=== PATIENT | female | born 1970 | race African-American/Black ===

== ENCOUNTER 2016-09-08 17:47 | Emergency (ER) | payer MEDICAID, OTHER ==
[~2016-09-08] VITALS: Ht 162.6 cm; Wt 90.0 kg
[2016-09-08] MEDS: ONDANSETRON HCL 4MG/2ML VIAL IV PRN ×2 (20:15→20:32)
[2016-09-08] MEDS: MORPHINE SULFATE 4 MG/ML CPJ (NOT FOR IM USE) IV PRN ×2 (20:15→20:33)
[2016-09-08] MEDS ORDERED: MORPHINE SULFATE 2 MG/ML CPJ (NOT FOR IM USE) IV ONE (20:15)
[2016-09-08 20:32] LABS: CHLORIDE 101 mEq/L (98-107)
[2016-09-08 20:34] LABS: CARBON DIOXIDE 20 mEq/L (21-32)
[2016-09-08 20:36] LABS: PROTHROMBIN TIME 10.7 sec
[2016-09-08 20:41] LABS: HCG SCREEN NEGATIVE
[2016-09-08 20:47] LABS: BASOPHILS % 0.4 % (0.0-2.0); EOSINOPHILS % 0.2 % (0.0-5.0); HEMATOCRIT. 38.1 % (36.0-48.0); HEMOGLOBIN. 12.6 g/dL (12.0-16.0); LYMPHOCYTES % 14.6 % (20.0-50.0); MEAN CORPUSCULAR HEMOGLOBIN 26.8 pg (28.0-32.0); MEAN CORPUSCULAR VOLUME 81.2 fL (81.0-99.0); MEAN PLATELET VOLUME 7.2 fl (7.4-10.4); MONOCYTES % 6.3 % (2.0-8.0); NEUTROPHILS % 78.5 % (40.0-76.0); PLATELET 320 x1000/uL (130-400); RED CELL DISTRIBUTION WIDTH 13.9 % (11.6-14.6)
[2016-09-08] MEDS ORDERED: MORPHINE SULFATE 4 MG/ML CPJ (NOT FOR IM USE) IV ONE (22:15)
[2016-09-08 22:18] VITALS: BP 149/85
== END 2016-09-08 22:30 | disposition short-term general hospital (02) ==
LOC: ER 18:37
DX: I60.2 Nontraumatic subarachnoid hemorrhage from anterior communicating artery (principal); I10 Essential (primary) hypertension; Z90.710 Acquired absence of both cervix and uterus
CPT/HCPCS: 36415; 70450; 70496; 80048; 84703; 85025; 85610; 96374; 96375; 96376; 99291; J2270; J2405; Z7610

== ENCOUNTER 2017-06-29 08:56 | Emergency (ER) | payer MEDICAID ==
[~2017-06-29] VITALS: Ht 157.5 cm; Wt 79.0 kg
[2017-06-29] MEDS ORDERED: IBUPROFEN 600MG TABLET PO ONE (11:00)
[2017-06-29 12:57] VITALS: BP 128/87
== END 2017-06-29 13:10 | disposition home or self-care (01) ==
LOC: ER 09:27
DX: S93.402A Sprain of unspecified ligament of left ankle, initial encounter (principal); X58.XXXA Exposure to other specified factors, initial encounter; Y93.89 Activity, other specified; Y92.89 Other specified places as the place of occurrence of the external cause; I10 Essential (primary) hypertension; Z90.710 Acquired absence of both cervix and uterus; Z98.890 Other specified postprocedural states; Z86.79 Personal history of other diseases of the circulatory system
CPT/HCPCS: 73600; 99284

== ENCOUNTER 2017-09-21 13:50 | Emergency (ER) | payer MEDICAID ==
[~2017-09-21] VITALS: Ht 154.9 cm; Wt 83.4 kg
[2017-09-21] MEDS ORDERED: IBUPROFEN 600MG TABLET PO ONE (16:15)
[2017-09-21 16:35] LABS: BASOPHILS % 1.4 % (0.0-2.0); EOSINOPHILS % 3.5 % (0.0-5.0); HEMATOCRIT. 38.4 % (36.0-48.0); HEMOGLOBIN. 12.7 g/dL (12.0-16.0); LYMPHOCYTES % 39.8 % (20.0-50.0); MEAN CORPUSCULAR HEMOGLOBIN 26.7 pg (28.0-32.0); MEAN CORPUSCULAR VOLUME 80.6 fL (81.0-99.0); MEAN PLATELET VOLUME 7.2 fl (7.4-10.4); MONOCYTES % 10.1 % (2.0-8.0); NEUTROPHILS % 45.2 % (40.0-76.0); PLATELET 313 x1000/uL (130-400); RED BLOOD CELL COUNT 4.76 mill/uL (4.2-5.4); RED CELL DISTRIBUTION WIDTH 13.8 % (11.6-14.6)
[2017-09-21 16:38] LABS: CHLORIDE 104 mEq/L (98-107)
[2017-09-21 16:54] LABS: HCG SCREEN NEGATIVE
[2017-09-21 17:49] VITALS: BP 110/60
== END 2017-09-21 17:51 | disposition home or self-care (01) ==
LOC: ER 14:42
DX: H66.91 Otitis media, unspecified, right ear (principal); R59.9 Enlarged lymph nodes, unspecified; I10 Essential (primary) hypertension; Z90.710 Acquired absence of both cervix and uterus
CPT/HCPCS: 36415; 80048; 84703; 85025; 99284

== ENCOUNTER 2023-04-12 17:54 | Inpatient (IN) | payer MEDICAID ==
[~2023-04-12] VITALS: Ht 157.5 cm; Wt 69.9 kg
[~2023-04-12 17:54] MED LIST: DEXA1TAB PO; LEVE10006 PO; SIMV-46 PO
[2023-04-12] MEDS ORDERED: LEVETIRACETAM 500MG PREMIX 100 ML IV ONE ×2 (18:45)
[2023-04-12] MEDS ORDERED: LORAZEPAM 2MG/ML INJ IV ONE (18:45)
[2023-04-12 19:33] LABS: BASOPHILS % 0.4 % (0.0-2.0); EOSINOPHILS % 0.3 % (0.0-5.0); HEMATOCRIT. 33.9 % (36.0-48.0); HEMOGLOBIN. 10.9 g/dL (12.0-16.0); LYMPHOCYTES % 24.4 % (20.0-50.0); MEAN CORPUSCULAR HEMOGLOBIN 27.7 pg (28.0-32.0); MEAN CORPUSCULAR HGB CONC 32.1 g/dL (31.0-37.0); MEAN CORPUSCULAR VOLUME 86.4 fL (81.0-99.0); MEAN PLATELET VOLUME 7.3 fl (7.4-10.4); MONOCYTES % 12.1 % (2.0-8.0); NEUTROPHILS % 62.8 % (40.0-76.0); PLATELET 228 x1000/uL (130-400); RED BLOOD CELL COUNT 3.93 mill/uL (4.2-5.4); WHITE BLOOD COUNT 5.2 x1000/uL (4.5-11.0)
[2023-04-12 19:36] LABS: PROTHROMBIN TIME 10.3 sec (9.6-11.0)
[2023-04-12 19:44] LABS: ALANINE AMINOTRANSFERASE 24 IU/L (10-49); ALBUMIN 3.9 g/dL (3.2-4.8); ASPARTATE AMINOTRANSFERASE 13 IU/L (<34); BILIRUBIN TOTAL 0.2 mg/dL (0.1-1.0); CALCIUM 8.9 mg/dL (8.7-10.4); CARBON DIOXIDE 21 mEq/L (21-32); CHLORIDE 106 mEq/L (98-107); CREATININE 0.5 mg/dL (0.6-1.0); GLUCOSE 117 mg/dL (70-105); POTASSIUM 3.8 mEq/L (3.5-5.1); PROTEIN TOTAL 6.5 g/dL (6.0-8.3); SODIUM 138 mEq/L (136-145); UREA NITROGEN BLOOD 16 mg/dL (9-23)
[2023-04-12 19:59] LABS: ETHANOL BLOOD < 10 mg/dL (<10); TROPONIN I HIGH SENSITIVITY < 4 ng/L (3.0-34)
[2023-04-12] MEDS ORDERED: LEVETIRACETAM 3,000 MG in SODIUM CHLORIDE 0.9% 100 ML IV NR (20:00)
[2023-04-12] MEDS ORDERED: LORAZEPAM 2MG/ML INJ IV NR (20:30)
[2023-04-12 20:31] LABS: CLARITY URINE CLEAR (CLEAR); COLOR URINE YELLOW (YELLOW); GLUCOSE URINE 1+ (NEGATIVE); KETONES URINE NEGATIVE (NEGATIVE); LEUKOCYTE ESTERASE URINE NEGATIVE (NEGATIVE); NITRITE URINE NEGATIVE (NEGATIVE); OCCULT BLOOD URINE NEGATIVE (NEGATIVE); PROTEIN URINE NEGATIVE (NEGATIVE); SPECIFIC GRAVITY URINE 1.055 (1.005-1.030); UROBILINOGEN URINE 0.2 E.U./dL (0.2-1.0)
[2023-04-12 21:02] LABS: BACTERIA URINE TRACE; RBC URINE 0-2 /hpf (0-2); SQUAMOUS EPITHELIAL CELL URINE FEW /lpf (RARE/1+); WBC URINE 0-2 /hpf (0-2)
[2023-04-12] MEDS ORDERED: ACETAMINOPHEN 325MG TABLET PO ONE (21:15)
[2023-04-12 21:19] LABS: *AMPHETAMINES SCREEN URINE NEGATIVE (NEGATIVE); *BARBITURATES SCREEN URINE NEGATIVE (NEGATIVE); *BENZODIAZEPINES SCREEN URINE NEGATIVE (NEGATIVE); *COCAINE SCREEN URINE NEGATIVE (NEGATIVE); CANNABINOID URINE SCREEN NEGATIVE (NEGATIVE); ECSTASY MDMA SCREEN URINE NEGATIVE (NEGATIVE); METHADONE URINE SCREEN Neg (NEGATIVE); OPIATES URINE SCREEN NEGATIVE (NEGATIVE); PHENCYCLIDINE URINE SCREEN NEGATIVE (NEGATIVE)
[2023-04-12] MEDS ORDERED: IOHEXOL-350 100 ML BOTTLE ONE (22:15)
[2023-04-13] MEDS ORDERED: AMLODIPINE 5MG TABLET PO SCH (12:45)
[2023-04-13] MEDS ORDERED: ONDANSETRON HCL 4MG/2ML INJ IV PRN (12:45)
[2023-04-13] MEDS ORDERED: ACETAMINOPHEN 325MG TABLET PO PRN (12:45)
[2023-04-13 16:17] VITALS: BP 151/90; PULSE 89; RESP 16; TEMP 97.6
[2023-04-13 16:30] VITALS: BP 130/90; PULSE 93; RESP 18; TEMP 97.2
[2023-04-13] MEDS ORDERED: ASPI-1497 PO (16:42)
[2023-04-13] MEDS ORDERED: METF-414 PO (16:42)
[2023-04-13 20:00] VITALS: BP 153/103; PULSE 100; RESP 19; TEMP 96.6
[2023-04-13] MEDS ORDERED: NALOXONE HCL 0.4MG/ML VIAL IV PRN (20:30)
[2023-04-13] MEDS ORDERED: HYDROCODONE/ACETAMINOPHEN 10/325MG TABLET PO PRN (20:30)
[2023-04-13] MEDS: LEVETIRACETAM 500MG TABLET PO SCH (20:47)
[2023-04-13] MEDS ORDERED: LEVETIRACETAM 500MG TABLET PO SCH (21:00)
[2023-04-14 04:00] VITALS: BP 139/82; PULSE 101; RESP 19; TEMP 96
[2023-04-14] MEDS ORDERED: DEXTROSE 50% WATER 50ML SYRINGE IV PRN ×2 (07:00)
[2023-04-14] MEDS: BLOOD SUGAR DIAGNOSTIC STRIP TEST SCH ×4 (07:40→21:16)
[2023-04-14 08:00] VITALS: BP 130/83; PULSE 105; RESP 20; TEMP 96.8
[2023-04-14] MEDS: INSULIN LISPRO 100 UNITS/ML SUBCUT SCH ×4 (08:10→21:27)
[2023-04-14] MEDS: AMLODIPINE 10MG TABLET PO SCH (08:31)
[2023-04-14] MEDS: LEVETIRACETAM 500MG TABLET PO SCH ×2 (08:31→21:27)
[2023-04-14 12:00] VITALS: BP 124/88; PULSE 103; RESP 18; TEMP 97
[2023-04-14 16:00] VITALS: BP 142/90; PULSE 101; RESP 18; TEMP 96.8
[2023-04-14] MEDS ORDERED: LORAZEPAM 4MG/ML INJ IV NR (17:15)
[2023-04-14] MEDS ORDERED: LORAZEPAM 2MG/ML INJ IV NR (18:00)
[2023-04-14] MEDS ORDERED: GADOTERATE MEGLUMINE 5 MMOL/10 ML VIAL IV ONE (19:03)
[2023-04-14 20:00] VITALS: BP 136/90; PULSE 114; RESP 19; TEMP 99.1
[2023-04-15] VITALS: BP 132/82; PULSE 116; RESP 19; TEMP 97.1
[2023-04-15 04:00] VITALS: BP 130/78; PULSE 112; RESP 19; TEMP 97
[2023-04-15] MEDS: BLOOD SUGAR DIAGNOSTIC STRIP TEST SCH (07:42)
[2023-04-15 08:00] VITALS: BP 139/79; PULSE 99; RESP 18; TEMP 97.7
[2023-04-15] MEDS: AMLODIPINE 10MG TABLET PO SCH (08:36)
[2023-04-15] MEDS: LEVETIRACETAM 500MG TABLET PO SCH (08:37)
[2023-04-15] MEDS: INSULIN LISPRO 100 UNITS/ML SUBCUT SCH (08:37)
[2023-04-15 11:35] VITALS: BP 120/79; PULSE 116; TEMP 97.6; O2SAT 99
[2023-04-15 12:00] VITALS: BP 120/79; PULSE 110; RESP 19; TEMP 97.3
== END 2023-04-15 12:10 | disposition home or self-care (01) | DRG 53 ==
LOC: ER 17:54 → 5WST 21:08 → EDBEDREQTM 21:11 → EDBEDREQ 21:11 → EDBEDREQSVC 21:11 → 7WST 04-13 16:00
PROVIDERS: ADMIT Internal Medicine; ATTEND Internal Medicine
PROC: 4A10X4Z Monitoring of Central Nervous Electrical Activity, External Approach (ICD-10-PCS; principal; 2023-04-14)
DX: G40.909 Epilepsy, unspecified, not intractable, without status epilepticus (principal); C71.9 Malignant neoplasm of brain, unspecified; E11.9 Type 2 diabetes mellitus without complications; I10 Essential (primary) hypertension; Z85.841 Personal history of malignant neoplasm of brain; Z86.73 Personal history of transient ischemic attack (TIA), and cerebral infarction without residual deficits; Z86.79 Personal history of other diseases of the circulatory system; Z90.710 Acquired absence of both cervix and uterus; Z79.69 Long term (current) use of other immunomodulators and immunosuppressants; Z79.899 Other long term (current) drug therapy
CPT/HCPCS: 36415; 70496; 70498; 70553; 71045; 80053; 80305; 80320; 81003; 82962; 83036; 84484; 85025; 93005; 95816; 97162; 97166; 99291; A9577; J1815; J1953; J2060; J7050; Q9967; G0480

== ENCOUNTER 2023-05-14 17:00 | Emergency (ER) | payer MEDICAID ==
[~2023-05-14] VITALS: Ht 154.9 cm; Wt 68.0 kg
[~2023-05-14 17:00] MED LIST changes: +ASPI-1497 PO; -DEXA1TAB PO; +METF-414 PO
[2023-05-14 17:09] VITALS: TEMP 98.1; O2SAT 100
[2023-05-14 17:53] LABS: BASOPHILS % 0.5 % (0.0-2.0); HEMATOCRIT. 32.7 % (36.0-48.0); HEMOGLOBIN. 10.7 g/dL (12.0-16.0); LYMPHOCYTES % 21.1 % (20.0-50.0); MEAN CORPUSCULAR HEMOGLOBIN 28.1 pg (28.0-32.0); MEAN CORPUSCULAR HGB CONC 32.6 g/dL (31.0-37.0); MEAN CORPUSCULAR VOLUME 86.2 fL (81.0-99.0); MEAN PLATELET VOLUME 7.4 fl (7.4-10.4); MONOCYTES % 3.1 % (2.0-8.0); NEUTROPHILS % 75.3 % (40.0-76.0); PLATELET 212 x1000/uL (130-400); RED CELL DISTRIBUTION WIDTH 16.9 % (11.6-14.6); WHITE BLOOD COUNT 3.9 x1000/uL (4.5-11.0)
[2023-05-14 18:04] LABS: INR 0.9; PROTHROMBIN TIME 10.5 sec (9.6-11.0)
[2023-05-14 18:05] LABS: CALCIUM 8.8 mg/dL (8.7-10.4); CARBON DIOXIDE 24 mEq/L (21-32); CHLORIDE 107 mEq/L (98-107); CREATININE 0.6 mg/dL (0.6-1.0); GLUCOSE 220 mg/dL (70-105); POTASSIUM 3.8 mEq/L (3.5-5.1); SODIUM 139 mEq/L (136-145); UREA NITROGEN BLOOD 10 mg/dL (9-23)
[2023-05-14 18:17] LABS: HCG SCREEN NEGATIVE
[2023-05-14] MEDS: HYDROCODONE/ACETAMINOPHEN 10/325MG TABLET PO ONE (19:58)
[2023-05-14] MEDS ORDERED: HYDR-4009 MT (20:53)
[2023-05-14] MEDS: HYDROCODONE/ACETAMINOPHEN 5/325MG TABLET PO NR (21:20)
[2023-05-14 21:25] VITALS: BP 136/88; PULSE 97; RESP 16
== END 2023-05-14 21:26 | disposition home or self-care (01) ==
LOC: ER 17:00
DX: G91.9 Hydrocephalus, unspecified (principal); Z85.841 Personal history of malignant neoplasm of brain; E11.9 Type 2 diabetes mellitus without complications; I10 Essential (primary) hypertension; Z90.710 Acquired absence of both cervix and uterus; Z79.899 Other long term (current) drug therapy
CPT/HCPCS: 36415; 70250; 71046; 74018; 80048; 84703; 85025; 99284

== ENCOUNTER 2024-03-14 14:12 | Emergency (ER) | payer MEDICAID ==
[~2024-03-14] VITALS: Ht 157.5 cm; Wt 70.0 kg
[~2024-03-14 14:12] MED LIST changes: +HYDR-4009 MT
[2024-03-14 14:14] VITALS: O2SAT 98
[2024-03-14] MEDS: LORAZEPAM 2MG/ML INJ IV ONE (14:46)
[2024-03-14] MEDS: LEVETIRACETAM 1000MG PREMIX 100 ML IV ONE (14:46)
[2024-03-14 14:52] LABS: CHLORIDE 101 mEq/L (98-107); CLARITY URINE CLEAR (CLEAR); COLOR URINE YELLOW (YELLOW); GLUCOSE URINE 2+ (NEGATIVE); KETONES URINE TRACE (NEGATIVE); LEUKOCYTE ESTERASE URINE NEGATIVE (NEGATIVE); NITRITE URINE POSITIVE (NEGATIVE); OCCULT BLOOD URINE NEGATIVE (NEGATIVE); POTASSIUM 3.5 mEq/L (3.5-5.1); PROTEIN URINE NEGATIVE (NEGATIVE); SODIUM 139 mEq/L (136-145); SPECIFIC GRAVITY URINE 1.022 (1.005-1.030); UROBILINOGEN URINE 0.2 E.U./dL (0.2-1.0)
[2024-03-14 14:53] LABS: BASOPHILS % 0.5 % (0.0-2.0); CALCIUM 9.8 mg/dL (8.7-10.4); CARBON DIOXIDE 25 mEq/L (21-32); EOSINOPHILS % 0.1 % (0.0-5.0); HEMATOCRIT. 33.2 % (36.0-48.0); HEMOGLOBIN. 10.7 g/dL (12.0-16.0); LYMPHOCYTES % 20.8 % (20.0-50.0); MEAN CORPUSCULAR HGB CONC 32.3 g/dL (31.0-37.0); MEAN CORPUSCULAR VOLUME 86.6 fL (81.0-99.0); MEAN PLATELET VOLUME 6.9 fl (7.4-10.4); MONOCYTES % 8.4 % (2.0-8.0); NEUTROPHILS % 70.2 % (40.0-76.0); PLATELET 286 x1000/uL (130-400); RED BLOOD CELL COUNT 3.83 mill/uL (4.2-5.4); WHITE BLOOD COUNT 7.3 x1000/uL (4.5-11.0)
[2024-03-14 14:58] LABS: CREATININE 0.6 mg/dL (0.6-1.0); GLUCOSE 177 mg/dL (70-105); UREA NITROGEN BLOOD 16 mg/dL (9-23)
[2024-03-14 15:00] LABS: *AMPHETAMINES SCREEN URINE NEGATIVE (NEGATIVE); *BARBITURATES SCREEN URINE NEGATIVE (NEGATIVE); *BENZODIAZEPINES SCREEN URINE NEGATIVE (NEGATIVE); *COCAINE SCREEN URINE NEGATIVE (NEGATIVE); METHADONE URINE SCREEN NEGATIVE (NEGATIVE); OPIATES URINE SCREEN NEGATIVE (NEGATIVE); PHENCYCLIDINE URINE SCREEN NEGATIVE (NEGATIVE)
[2024-03-14 15:01] LABS: CANNABINOID URINE SCREEN NEGATIVE (NEGATIVE); ECSTASY MDMA SCREEN URINE NEGATIVE (NEGATIVE)
[2024-03-14 15:06] LABS: BACTERIA URINE 3+
[2024-03-14 15:07] LABS: RBC URINE NONE SEEN /hpf (0-2); WBC URINE 0-2 /hpf (0-2)
[2024-03-14 15:08] LABS: SQUAMOUS EPITHELIAL CELL URINE FEW /lpf (RARE/1+)
[2024-03-14 15:33] LABS: ETHANOL BLOOD < 10 mg/dL (<10)
[2024-03-14 20:43] VITALS: BP 132/79; PULSE 85; RESP 15; TEMP 36.94740; O2SAT 98
== END 2024-03-14 20:44 | disposition home or self-care (01) ==
LOC: ER 14:17
DX: G40.909 Epilepsy, unspecified, not intractable, without status epilepticus (principal); E11.9 Type 2 diabetes mellitus without complications; I10 Essential (primary) hypertension; Z90.710 Acquired absence of both cervix and uterus; Z98.890 Other specified postprocedural states; Z79.899 Other long term (current) drug therapy; Z88.5 Allergy status to narcotic agent
CPT/HCPCS: 80305; 80048; 81003; 80320; 85025; 36415; 96365; 96375; 99285; J1953; J2060; G0480